=== PATIENT | female | born 1990 | race Native Hawaiian/Other Pacific Islander ===

== ENCOUNTER 2018-12-16 07:32 | Emergency (ER) | payer OTHER ==
[~2018-12-16] VITALS: Ht 160 cm; Wt 62.6 kg
[2018-12-16 07:40] VITALS: BP 131/75; TEMP 98.8
== END 2018-12-16 10:05 | disposition home or self-care (01) ==
LOC: ED 07:32
DX: J32.8 Other chronic sinusitis (principal); R05 Cough; J02.9 Acute pharyngitis, unspecified; F17.210 Nicotine dependence, cigarettes, uncomplicated
CPT/HCPCS: 87502; 87651; 99283

== ENCOUNTER 2019-03-30 18:17 | Emergency (ER) | payer OTHER ==
[~2019-03-30] VITALS: Ht 160 cm; Wt 59.4 kg
[2019-03-30 19:25] VITALS: BP 130/76; TEMP 98.1
== END 2019-03-30 19:25 | disposition home or self-care (01) ==
LOC: ED 18:17
DX: J06.9 Acute upper respiratory infection, unspecified (principal)
CPT/HCPCS: 87502; 87651; 99283

== ENCOUNTER 2019-04-10 16:35 | Emergency (ER) | payer OTHER ==
[~2019-04-10] VITALS: Ht 160 cm; Wt 57.2 kg
[2019-04-10 17:07] VITALS: TEMP 98.8
[2019-04-10 19:17] LABS: PLATELET COUNT 387 K/uL (152-353)
[2019-04-10 19:21] LABS: POTASSIUM 3.7 mmol/L (3.6-5.2); SODIUM 140 mmol/L (136-145)
[2019-04-10 20:56] VITALS: BP 105/69
== END 2019-04-10 20:58 | disposition home or self-care (01) ==
LOC: ED 16:35
PROVIDERS: Family Medicine
DX: R11.2 Nausea with vomiting, unspecified (principal); N91.2 Amenorrhea, unspecified
CPT/HCPCS: 36415; 80053; 81000; 81025; 84702; 85027; 87086; 87088; 96360; 96365; 96375; 96376; 99284; J2405

== ENCOUNTER 2019-04-13 12:32 | Emergency (ER) | payer OTHER ==
[~2019-04-13] VITALS: Ht 160 cm; Wt 57.2 kg
[2019-04-13 13:39] LABS: PLATELET COUNT 376 K/uL (152-353)
[2019-04-13 13:43] LABS: POTASSIUM 3.2 mmol/L (3.6-5.2)
[2019-04-13 17:35] VITALS: BP 120/69; TEMP 97.9
== END 2019-04-13 17:35 | disposition home or self-care (01) ==
LOC: ED 12:32
PROVIDERS: Hospitalist
DX: N30.90 Cystitis, unspecified without hematuria (principal); R11.2 Nausea with vomiting, unspecified
CPT/HCPCS: 80053; 81000; 81025; 82150; 83690; 85027; 87502; 87651; 96360; 96361; 96365; 96375; 96376; 99284; J0696; J0744; J2405; J2765

== ENCOUNTER 2019-04-18 13:57 | Emergency (ER) | payer OTHER ==
[~2019-04-18] VITALS: Ht 160 cm; Wt 57.2 kg
[2019-04-18 16:00] VITALS: BP 115/82; TEMP 98.9
== END 2019-04-18 16:00 | disposition home or self-care (01) ==
LOC: ED 13:57
DX: N39.0 Urinary tract infection, site not specified (principal); R11.2 Nausea with vomiting, unspecified
CPT/HCPCS: 81000; 81025; 99282; 99283

== ENCOUNTER 2019-05-28 19:45 | Emergency (ER) | payer OTHER ==
[~2019-05-28] VITALS: Ht 160 cm; Wt 57.2 kg
[2019-05-28] MEDS ORDERED: ALPR0.2566 PO (19:55)
[2019-05-28 22:40] VITALS: BP 116/71; TEMP 98.3
== END 2019-05-28 22:24 | disposition home or self-care (01) ==
LOC: ED 19:45
DX: J06.9 Acute upper respiratory infection, unspecified (principal); F17.210 Nicotine dependence, cigarettes, uncomplicated
CPT/HCPCS: 87502; 87651; 99283

== ENCOUNTER 2020-08-22 17:04 | Emergency (ER) | payer OTHER ==
[~2020-08-22 17:04] MED LIST: ALPR0.2566 PO
== END 2020-08-22 18:45 | disposition home or self-care (01) ==
LOC: ED 17:04
DX: S40.012A Contusion of left shoulder, initial encounter (principal); S60.212A Contusion of left wrist, initial encounter; V86.95XA Unspecified occupant of 3- or 4- wheeled all-terrain vehicle (ATV) injured in nontraffic accident, initial encounter; Y92.098 Other place in other non-institutional residence as the place of occurrence of the external cause
CPT/HCPCS: 99283

== ENCOUNTER 2020-08-24 04:06 | Emergency (ER) | payer OTHER | END 2020-08-24 06:35 | disposition home or self-care (01) | LOC: ED 04:06 | DX: S43.492D Other sprain of left shoulder joint, subsequent encounter (principal); S40.012D Contusion of left shoulder, subsequent encounter; V86.99XD Unspecified occupant of other special all-terrain or other off-road motor vehicle injured in nontraffic accident, subsequent encounter; Y92.410 Unspecified street and highway as the place of occurrence of the external cause | CPT/HCPCS: 96372; 99283; J1885 ==

== ENCOUNTER 2020-08-26 18:18 | Emergency (ER) | payer OTHER | END 2020-08-26 20:15 | disposition home or self-care (01) | LOC: ED 18:18 | DX: R11.2 Nausea with vomiting, unspecified (principal) | CPT/HCPCS: 96372; 99282; J2550 ==

== ENCOUNTER 2020-09-01 15:46 | Emergency (ER) | payer OTHER ==
[~2020-09-01] VITALS: Ht 160 cm; Wt 53.5 kg
[2020-09-01 18:01] LABS: PLATELET COUNT 308 K/uL (152-353)
[2020-09-01 18:14] LABS: POTASSIUM 3.1 mmol/L (3.6-5.2)
[2020-09-01 21:30] VITALS: BP 124/81; TEMP 97.8
== END 2020-09-01 21:30 | disposition home or self-care (01) ==
LOC: ED 15:46
PROVIDERS: Emergency Medicine
DX: R10.84 Generalized abdominal pain (principal); R11.2 Nausea with vomiting, unspecified
CPT/HCPCS: 36415; 80053; 80307; 80320; 81000; 82150; 83690; 85027; 93005; 96374; 99284; J2405

== ENCOUNTER 2020-12-07 13:27 | Emergency (ER) | payer OTHER ==
[~2020-12-07] VITALS: Ht 157.5 cm; Wt 58.5 kg
[2020-12-07 13:33] VITALS: BP 126/83; TEMP 98.7
[2020-12-07 13:57] LABS: PLATELET COUNT 318 K/uL (152-353)
[2020-12-07 14:04] LABS: POTASSIUM 3.9 mmol/L (3.6-5.2)
[2020-12-07 14:16] LABS: PARTIAL THROMBOPLASTIN TIME 24.3 SECONDS (24.5-33.6)
== END 2020-12-07 15:16 | disposition home or self-care (01) ==
LOC: ED 13:27
PROVIDERS: Hospitalist
DX: R10.2 Pelvic and perineal pain (principal)
CPT/HCPCS: 36415; 80053; 81000; 81025; 83690; 85027; 85610; 85730; 96360; 96375; 99284; J2270; J2405; Q9963

== ENCOUNTER 2020-12-30 13:28 | Emergency (ER) | payer OTHER ==
[~2020-12-30] VITALS: Ht 157.5 cm; Wt 58.5 kg
[2020-12-30 13:44] VITALS: TEMP 98.1
[2020-12-30 14:24] VITALS: BP 106/78
== END 2020-12-30 14:24 | disposition home or self-care (01) ==
LOC: ED 13:28
DX: J06.9 Acute upper respiratory infection, unspecified (principal); J32.8 Other chronic sinusitis; F17.210 Nicotine dependence, cigarettes, uncomplicated
CPT/HCPCS: 87651; 99283

== ENCOUNTER 2021-02-28 21:24 | Emergency (ER) | payer OTHER ==
[~2021-02-28] VITALS: Ht 157.5 cm; Wt 58.5 kg
[2021-02-28 23:19] VITALS: BP 121/81; TEMP 98.4
== END 2021-02-28 23:22 | disposition home or self-care (01) ==
LOC: ED 21:24
DX: S63.694A Other sprain of right ring finger, initial encounter (principal); S63.696A Other sprain of right little finger, initial encounter; Y04.0XXA Assault by unarmed brawl or fight, initial encounter; Y92.89 Other specified places as the place of occurrence of the external cause
CPT/HCPCS: 96372; 99283; J1885

== ENCOUNTER 2021-06-20 07:24 | Emergency (ER) | payer OTHER ==
[~2021-06-20] VITALS: Ht 157.5 cm; Wt 58.5 kg
[2021-06-20 07:32] VITALS: TEMP 97.7
[2021-06-20 08:02] LABS: PLATELET COUNT 278 K/uL (152-353)
[2021-06-20 09:40] VITALS: BP 122/74
== END 2021-06-20 09:40 | disposition home or self-care (01) ==
LOC: ED 07:24
PROVIDERS: Emergency Medicine Emergency Medical Services
DX: R10.84 Generalized abdominal pain (principal); N92.1 Excessive and frequent menstruation with irregular cycle
CPT/HCPCS: 36415; 80048; 81000; 81025; 84702; 85027; 85610; 96360; 96374; 96375; 99284; J1885; J2405; Q9963

== ENCOUNTER 2021-08-29 01:19 | Emergency (ER) | payer OTHER ==
[~2021-08-29] VITALS: Ht 157.5 cm; Wt 56.7 kg
[2021-08-29 01:25] VITALS: TEMP 98.4
[2021-08-29 03:19] VITALS: BP 104/60
== END 2021-08-29 03:19 | disposition home or self-care (01) ==
LOC: ED 01:19
DX: J20.9 Acute bronchitis, unspecified (principal); F17.210 Nicotine dependence, cigarettes, uncomplicated; Z20.822 Contact with and (suspected) exposure to COVID-19
CPT/HCPCS: 80307; 81002; 87502; 87635; 87651; 96372; 99283; J1885; U0003

== ENCOUNTER 2021-12-22 11:04 | Emergency (ER) | payer OTHER ==
[~2021-12-22] VITALS: Ht 157.5 cm; Wt 56.7 kg
[2021-12-22 12:36] LABS: PLATELET COUNT 338 K/uL (152-353)
[2021-12-22 12:37] LABS: POTASSIUM 4.6 mmol/L (3.6-5.2)
[2021-12-22 14:05] VITALS: BP 122/80; TEMP 98
[2021-12-23] MEDS ORDERED: PROM25TA52 PO (22:23)
== END 2021-12-22 14:05 | disposition home or self-care (01) ==
LOC: ED 11:04
PROVIDERS: Family Medicine
DX: R11.2 Nausea with vomiting, unspecified (principal); R10.84 Generalized abdominal pain; A05.9 Bacterial foodborne intoxication, unspecified
CPT/HCPCS: 80053; 80307; 81000; 81025; 82150; 83690; 85027; 96361; 96365; 96375; 99284; J0132; J1885; J2405; J2765

== ENCOUNTER 2021-12-23 20:36 | Emergency (ER) | payer OTHER ==
[~2021-12-23] VITALS: Ht 157.5 cm; Wt 56.7 kg
[2021-12-23 20:40] VITALS: TEMP 98
[2021-12-23 21:16] LABS: PLATELET COUNT 318 K/uL (152-353)
[2021-12-23 21:24] LABS: POTASSIUM 3.6 mmol/L (3.6-5.2)
[2021-12-23] MEDS ORDERED: PROM25TA52 PO (22:23)
[2021-12-24] VITALS: BP 121/77
== END 2021-12-24 | disposition home or self-care (01) ==
LOC: ED 20:36
PROVIDERS: Emergency Medicine
DX: R11.2 Nausea with vomiting, unspecified (principal); K52.89 Other specified noninfective gastroenteritis and colitis
CPT/HCPCS: 36415; 80048; 85027; 96365; 96375; 96376; 99284; J1885; J2550

== ENCOUNTER 2021-12-27 05:39 | Observation (INO) | payer OTHER ==
[~2021-12-27] VITALS: Ht 157.5 cm; Wt 54.6 kg
[~2021-12-27 05:39] MED LIST changes: +PROM25TA52 PO
[2021-12-27 05:50] VITALS: BP 136/86; TEMP 97.7
[2021-12-27 06:42] LABS: PLATELET COUNT 308 K/uL (152-353)
[2021-12-27 06:51] LABS: POTASSIUM 3.1 mmol/L (3.6-5.2)
[2021-12-27 10:25] VITALS: BP 123/80; TEMP 98.8; Ht 157.5 cm; Wt 54.6 kg
[2021-12-27 13:50] VITALS: BP 133/77; TEMP 99.2
[2021-12-27 17:50] VITALS: BP 125/72; TEMP 98.5
[2021-12-27 21:50] VITALS: BP 115/73; TEMP 98.3
[2021-12-27 23:59] VITALS: BP 154/80; TEMP 97.8
[2021-12-28 04:28] VITALS: BP 136/77; TEMP 98
[2021-12-28 05:02] LABS: PLATELET COUNT 268 K/uL (152-353)
[2021-12-28 05:24] LABS: POTASSIUM 3.9 mmol/L (3.6-5.2)
[2021-12-28 12:00] VITALS: BP 130/86; TEMP 98.8
[2021-12-28 16:00] VITALS: BP 129/69; TEMP 99.2
[2021-12-28 20:05] VITALS: BP 115/69; TEMP 99.2
[2021-12-28 23:59] VITALS: BP 103/53; TEMP 98.8
[2021-12-29 04:03] VITALS: BP 106/68; TEMP 99
[2021-12-29 09:20] VITALS: BP 128/75; TEMP 99.4
[2021-12-29] MEDS ORDERED: PANTOPRAZOLE 40MG TA PO (10:48)
== END 2021-12-29 13:30 | disposition home or self-care (01) ==
LOC: ED 05:39 → MED/SURG 08:05
PROVIDERS: Family Medicine; ADMIT Internal Medicine; ATTEND Internal Medicine
DX: K52.89 Other specified noninfective gastroenteritis and colitis (principal); R11.2 Nausea with vomiting, unspecified; E87.6 Hypokalemia
CPT/HCPCS: 36415; 80053; 80307; 81000; 82150; 83690; 83735; 85027; 87040; 87635; 96360; 96361; 96365; 96366; 96367; 96372; 96374; 96375; 96376; 99220; 99283; 99284; G0378; J1650; J2550; J2765; J3475; J3490; U0003

== ENCOUNTER 2022-03-30 19:04 | Emergency (ER) | payer OTHER ==
[~2022-03-30] VITALS: Ht 157.5 cm; Wt 54.4 kg
[~2022-03-30 19:04] MED LIST changes: +PANTOPRAZOLE 40MG TA PO
[2022-03-30 19:05] VITALS: BP 120/77; TEMP 98.8
[2022-03-30 20:00] LABS: PLATELET COUNT 368 K/uL (152-353)
[2022-03-30 20:01] LABS: POTASSIUM 3.2 mmol/L (3.6-5.2)
== END 2022-03-30 21:15 | disposition home or self-care (01) ==
LOC: ED 19:04
PROVIDERS: Internal Medicine
DX: K31.84 Gastroparesis (principal)
CPT/HCPCS: 80053; 80307; 81025; 85027; 96374; 96375; 99284; J2270; J2405; J2550

== ENCOUNTER 2022-04-01 20:32 | Emergency (ER) | payer OTHER ==
[~2022-04-01] VITALS: Ht 157.5 cm; Wt 54.4 kg
[2022-04-01 20:35] VITALS: TEMP 98.8
[2022-04-01 21:38] LABS: PLATELET COUNT 340 K/uL (152-353)
[2022-04-01 21:45] LABS: POTASSIUM 3.2 mmol/L (3.6-5.2)
[2022-04-01 23:15] VITALS: BP 129/70
== END 2022-04-01 23:15 | disposition home or self-care (01) ==
LOC: ED 20:32
PROVIDERS: Emergency Medicine
DX: K82.8 Other specified diseases of gallbladder (principal)
CPT/HCPCS: 36415; 80053; 80307; 81000; 83690; 85027; 96361; 96374; 96375; 96376; 99284; J1885; J2270; J2405; Q9963

== ENCOUNTER 2022-04-04 07:01 | Emergency (ER) | payer OTHER ==
[~2022-04-04] VITALS: Ht 157.5 cm; Wt 54.4 kg
[2022-04-04 07:08] VITALS: TEMP 98.8
[2022-04-04 07:38] LABS: PLATELET COUNT 294 K/uL (152-353)
[2022-04-04 07:43] LABS: POTASSIUM 3.4 mmol/L (3.6-5.2)
[2022-04-04 10:32] VITALS: BP 143/88
== END 2022-04-04 10:37 | disposition still patient (30) ==
LOC: ED 07:01
PROVIDERS: Emergency Medicine
DX: G89.18 Other acute postprocedural pain (principal); R11.2 Nausea with vomiting, unspecified
CPT/HCPCS: 80053; 81002; 81025; 83690; 85027; 96361; 96374; 96375; 99284; J2270; J2405; J3490; Q9963

== ENCOUNTER 2022-04-05 19:57 | Emergency (ER) | payer OTHER ==
[~2022-04-05] VITALS: Ht 157.5 cm; Wt 54.4 kg
[2022-04-05 20:20] VITALS: TEMP 98.7
[2022-04-05 23:00] VITALS: BP 169/78
== END 2022-04-05 23:00 | disposition home or self-care (01) ==
LOC: ED 19:57
DX: R11.2 Nausea with vomiting, unspecified (principal); Z90.49 Acquired absence of other specified parts of digestive tract
CPT/HCPCS: 96372; 99282; J2405

== ENCOUNTER 2022-05-03 21:25 | Emergency (ER) | payer OTHER ==
[~2022-05-03] VITALS: Ht 157.5 cm; Wt 52.2 kg
[2022-05-03 21:27] VITALS: TEMP 98.6
[2022-05-03 22:51] LABS: PLATELET COUNT 350 K/uL (152-353)
[2022-05-03 23:03] LABS: POTASSIUM 3.2 mmol/L (3.6-5.2)
[2022-05-03 23:14] LABS: PARTIAL THROMBOPLASTIN TIME 23.2 SECONDS (24.5-33.6)
[2022-05-04 01:40] VITALS: BP 110/77
== END 2022-05-04 01:40 | disposition home or self-care (01) ==
LOC: ED 21:25
PROVIDERS: Emergency Medicine
DX: R07.89 Other chest pain (principal)
CPT/HCPCS: 36415; 80053; 80307; 81000; 84484; 85027; 85610; 85730; 93005; 99283

== ENCOUNTER 2022-07-20 11:22 | Emergency (ER) | payer OTHER ==
[~2022-07-20] VITALS: Ht 157.5 cm; Wt 56.7 kg
[2022-07-20 11:32] VITALS: BP 120/87; TEMP 99.1
== END 2022-07-20 12:41 | disposition home or self-care (01) ==
LOC: ED 11:22
DX: Z53.21 Procedure and treatment not carried out due to patient leaving prior to being seen by health care provider (principal)
CPT/HCPCS: 99281

== ENCOUNTER 2022-07-21 12:01 | Emergency (ER) | payer OTHER ==
[~2022-07-21] VITALS: Ht 160 cm; Wt 54.4 kg
[2022-07-21 12:15] VITALS: TEMP 98.1
[2022-07-21 12:48] LABS: PLATELET COUNT 345 K/uL (152-353)
[2022-07-21 12:57] LABS: POTASSIUM 3.7 mmol/L (3.6-5.2)
[2022-07-21 15:31] VITALS: BP 152/97
== END 2022-07-21 15:31 | disposition home or self-care (01) ==
LOC: ED 12:01
PROVIDERS: Family Medicine
DX: R10.9 Unspecified abdominal pain (principal); R10.13 Epigastric pain; F17.210 Nicotine dependence, cigarettes, uncomplicated
CPT/HCPCS: 36415; 80053; 81002; 81025; 82150; 83690; 85027; 96361; 96374; 96375; 96376; 99284; J1200; J1885; J2405

== ENCOUNTER 2022-09-09 13:18 | Emergency (ER) | payer OTHER ==
[~2022-09-09] VITALS: Ht 160 cm; Wt 54.4 kg
[2022-09-09 16:00] VITALS: BP 121/89; TEMP 98.5
== END 2022-09-09 16:00 | disposition home or self-care (01) ==
LOC: ED 13:18
DX: R10.9 Unspecified abdominal pain (principal); F17.210 Nicotine dependence, cigarettes, uncomplicated; F12.90 Cannabis use, unspecified, uncomplicated
CPT/HCPCS: 96372; 99283; J1100; J1885

== ENCOUNTER 2022-10-25 16:06 | Emergency (ER) | payer OTHER ==
[~2022-10-25] VITALS: Ht 160 cm; Wt 54.4 kg
[2022-10-25 16:31] VITALS: BP 144/90; TEMP 98.8
== END 2022-10-25 19:00 | disposition left against medical advice (07) ==
LOC: ED 16:06
DX: N39.0 Urinary tract infection, site not specified (principal); R10.9 Unspecified abdominal pain; F17.200 Nicotine dependence, unspecified, uncomplicated
CPT/HCPCS: 99281